=== PATIENT | female | born 1970 | race Caucasian/White ===

== ENCOUNTER 2021-01-12 18:46 | Emergency (ER) | payer MEDICAID ==
[~2021-01-12] VITALS: Ht 167.6 cm; Wt 69.0 kg
[2021-01-13 03:06] LABS: CLARITY URINE CLOUDY (CLEAR); COLOR URINE YELLOW (YELLOW); KETONES URINE 2+ (NEGATIVE); LEUKOCYTE ESTERASE URINE 2+ (NEGATIVE); NITRITE URINE POSITIVE (NEGATIVE); OCCULT BLOOD URINE 2+ (NEGATIVE); PH URINE 5.5 (4.5-8.0); PROTEIN URINE 3+ (NEGATIVE); SPECIFIC GRAVITY URINE 1.025 (1.005-1.030); UROBILINOGEN URINE 0.2 E.U./dL (0.2-1.0)
[2021-01-13] MEDS ORDERED: KETOROLAC 30MG/ML VIAL IM ONE (03:30)
[2021-01-13 03:38] VITALS: BP 158/87
[2021-01-13] MEDS ORDERED: T3 PO (04:58)
[2021-01-13] MEDS ORDERED: NITR-87 MT (04:58)
== END 2021-01-13 05:16 | disposition home or self-care (01) ==
LOC: ER 18:46
DX: M54.5 Low back pain (principal); G89.11 Acute pain due to trauma; N39.0 Urinary tract infection, site not specified; R03.0 Elevated blood-pressure reading, without diagnosis of hypertension; E11.9 Type 2 diabetes mellitus without complications; I25.2 Old myocardial infarction; Z95.5 Presence of coronary angioplasty implant and graft
CPT/HCPCS: 81003; 81025; 87077; 87086; 87186; 96372; 99283; J1885

== ENCOUNTER 2022-04-15 04:37 | Emergency (ER) | payer MEDICAID ==
[~2022-04-15] VITALS: Ht 152.4 cm; Wt 55.9 kg
[~2022-04-15 04:37] MED LIST: NITR-87 MT; T3 PO
[2022-04-15] MEDS ORDERED: MORPHINE SULFATE 4 MG/ML CPJ (NOT FOR IM USE) IV STA (05:15)
[2022-04-15 06:10] LABS: BASOPHILS % 1.3 % (0.0-2.0); EOSINOPHILS % 0.9 % (0.0-5.0); HEMATOCRIT. 39.1 % (36.0-48.0); MEAN CORPUSCULAR HEMOGLOBIN 31.2 pg (28.0-32.0); MEAN CORPUSCULAR VOLUME 93.4 fL (81.0-99.0); MEAN PLATELET VOLUME 9.6 fl (7.4-10.4); MONOCYTES % 4.5 % (2.0-8.0); NEUTROPHILS % 77.3 % (40.0-76.0); PLATELET 316 x1000/uL (130-400); RED BLOOD CELL COUNT 4.18 mill/uL (4.2-5.4); RED CELL DISTRIBUTION WIDTH 13.2 % (11.6-14.6)
[2022-04-15 06:22] LABS: CHLORIDE 97 mEq/L (98-107)
[2022-04-15 06:28] LABS: INR 0.9; PROTHROMBIN TIME 9.3 sec (9.6-11.0)
[2022-04-15 06:30] LABS: HCG SCREEN NEGATIVE
[2022-04-15 06:31] VITALS: BP 174/94
[2022-04-15] MEDS ORDERED: POLY17PO3 PO (07:22)
[2022-04-15] MEDS ORDERED: LACTULOSE 20G/30ML UDC PO ONE (07:30)
== END 2022-04-15 08:16 | disposition home or self-care (01) ==
LOC: ER 04:37
DX: K59.00 Constipation, unspecified (principal); E11.9 Type 2 diabetes mellitus without complications; I25.2 Old myocardial infarction; Z90.710 Acquired absence of both cervix and uterus
CPT/HCPCS: 36415; 74176; 80053; 81025; 83690; 84703; 85025; 85610; 96374; 99284; J2270

== ENCOUNTER 2022-04-20 19:56 | Emergency (ER) | payer MEDICAID ==
[~2022-04-20] VITALS: Ht 152.4 cm; Wt 52.0 kg
[~2022-04-20 19:56] MED LIST changes: +POLY17PO3 PO
[2022-04-21] MEDS ORDERED: SODIUM CHLORIDE 0.9% 1000ML BAG (SEPSIS BOLUS) IV ONE (04:45)
[2022-04-21 05:24] LABS: BASOPHILS % 1.2 % (0.0-2.0); EOSINOPHILS % 2.7 % (0.0-5.0); HEMATOCRIT. 38.7 % (36.0-48.0); HEMOGLOBIN. 13.2 g/dL (12.0-16.0); LYMPHOCYTES % 28.9 % (20.0-50.0); MEAN CORPUSCULAR VOLUME 93.9 fL (81.0-99.0); MEAN PLATELET VOLUME 9.1 fl (7.4-10.4); MONOCYTES % 7.8 % (2.0-8.0); NEUTROPHILS % 59.4 % (40.0-76.0); PLATELET 315 x1000/uL (130-400); RED BLOOD CELL COUNT 4.12 mill/uL (4.2-5.4); RED CELL DISTRIBUTION WIDTH 13.1 % (11.6-14.6)
[2022-04-21 05:33] LABS: CHLORIDE 102 mEq/L (98-107)
[2022-04-21 05:42] LABS: BETA HYDROXYBUTYRATE 0.3 mMol/L (0.0-0.3)
[2022-04-21] MEDS ORDERED: METF-416 MT (06:22)
[2022-04-21] MEDS ORDERED: NPH,100I SQ (06:22)
[2022-04-21] MEDS ORDERED: CEPH500C2 MT (06:22)
[2022-04-21 07:00] VITALS: BP 166/90
== END 2022-04-21 07:16 | disposition home or self-care (01) ==
LOC: ER 19:56
DX: L03.031 Cellulitis of right toe (principal); E11.65 Type 2 diabetes mellitus with hyperglycemia; R00.0 Tachycardia, unspecified; I10 Essential (primary) hypertension; Z91.14 Patient's other noncompliance with medication regimen; Z79.4 Long term (current) use of insulin; Z79.84 Long term (current) use of oral hypoglycemic drugs
CPT/HCPCS: 36415; 71045; 80053; 82010; 82962; 83605; 84145; 85025; 87040; 93005; 96360; 96361; 99285; J7030

== ENCOUNTER 2022-07-13 03:02 | Emergency (ER) | payer MEDICAID, OTHER ==
[~2022-07-13] VITALS: Ht 152.4 cm; Wt 66.0 kg
[~2022-07-13 03:02] MED LIST changes: +CEPH500C2 MT; +METF-416 MT; +NPH,100I SQ
[2022-07-13 09:36] LABS: BASOPHILS % 1.1 % (0.0-2.0); EOSINOPHILS % 2.9 % (0.0-5.0); HEMATOCRIT. 33.9 % (36.0-48.0); HEMOGLOBIN. 10.9 g/dL (12.0-16.0); LYMPHOCYTES % 20.9 % (20.0-50.0); MEAN CORPUSCULAR HEMOGLOBIN 30.8 pg (28.0-32.0); MEAN CORPUSCULAR VOLUME 95.8 fL (81.0-99.0); MEAN PLATELET VOLUME 9.1 fl (7.4-10.4); MONOCYTES % 9.4 % (2.0-8.0); NEUTROPHILS % 65.7 % (40.0-76.0); PLATELET 288 x1000/uL (130-400); RED BLOOD CELL COUNT 3.54 mill/uL (4.2-5.4); RED CELL DISTRIBUTION WIDTH 14.7 % (11.6-14.6)
[2022-07-13 09:42] LABS: CHLORIDE 111 mEq/L (98-107)
[2022-07-13 09:49] LABS: INR 0.9
[2022-07-13] MEDS ORDERED: ASPIRIN 81MG TABLET PO ONE (10:30)
[2022-07-13] MEDS ORDERED: FUROSEMIDE 40MG/4ML VIAL IV ONE (10:30)
[2022-07-13 14:51] VITALS: BP 123/63
== END 2022-07-13 15:19 | disposition short-term general hospital (02) ==
LOC: ER 03:02 → EDBEDREQ 10:30 → ER 15:19 → CANBEDREQ 20:55
DX: I11.0 Hypertensive heart disease with heart failure (principal); I50.9 Heart failure, unspecified; E11.9 Type 2 diabetes mellitus without complications; Z20.822 Contact with and (suspected) exposure to COVID-19; Z79.899 Other long term (current) drug therapy; Z79.84 Long term (current) use of oral hypoglycemic drugs
CPT/HCPCS: 36415; 71045; 80053; 83880; 84484; 85025; 85610; 87426; 93005; 96374; 99285; C9803; J1940; Z7610